=== PATIENT | male | born 1975 | race Hispanic/Latino ===

== ENCOUNTER 2017-05-16 17:58 | Emergency (ER) | payer SELFPAY ==
[~2017-05-16] VITALS: Ht 177.8 cm; Wt 83.9 kg
--- NOTE | 2017-05-16 21:07 | Diagnostic Imaging Report ---
Two view chest x-ray INDICATION: Cough for 2 weeks COMPARISON: None. FINDINGS: The cardiomediastinal silhouette is normal. There is no evidence of hilar lymphadenopathy. The pulmonary vascular markings are normal. There is no evidence of focal consolidation or pleural effusion. Evaluation of the osseous structures demonstrates no focal abnormality. IMPRESSION: No active cardiopulmonary disease. Signed by: Dr. Riley Corcoran MD on 05/16/2017 9:04 PM
[2017-05-16 23:00] LABS: STREPTOCOCCUS GRP A ANTIGEN NEGATIVE (NEGATIVE)
[2017-05-16 23:11] LABS: INFLUENZAE A&B ANTIGEN (RAPID) NEGATIVE (NEGATIVE)
== END 2017-05-17 01:13 | disposition home or self-care (01) ==
LOC: ER 17:58
DX: R05 Cough (principal); J02.9 Acute pharyngitis, unspecified; B34.9 Viral infection, unspecified
CPT/HCPCS: 71020; 83518; 87070; 87400; 99283

== ENCOUNTER → 2025-02-28 | Day surgery (SDC) | payer BC ==
[~2025-02-28] MED LIST: AMLODIPINE BESY10 MG PO; DIOVAN160 MG PO; HYOSCYAMINE SULFATE 0.5 MG/ML INJ ONE; LEVOTHYROXINE50 MCG PO; LIDOCAINE HCL 2% LOCAL INJ 5 ML SDV VIAL INJ ONE; MIDAZOLAM HCL 2 MG/2 ML VIAL ONE; PROPOFOL IV EMULSION 10 MG/ML 20 ML VIAL ONE; zinc PO
[2025-02-28] MEDS: LACTATED RINGER'S 1,000 ML ONE (12:20)
[2025-02-28 13:54] VITALS: TEMP 98
[2025-02-28 14:15] VITALS: BP 143/91; PULSE 74; RESP 18; O2SAT 99
== END | disposition home or self-care (01) ==
LOC: OR 07:14
PROVIDERS: ATTEND Internal Medicine Gastroenterology
DX: D12.3 Benign neoplasm of transverse colon (principal); D12.2 Benign neoplasm of ascending colon; D12.0 Benign neoplasm of cecum; K63.5 Polyp of colon; K64.8 Other hemorrhoids; I10 Essential (primary) hypertension; E03.9 Hypothyroidism, unspecified; K21.9 Gastro-esophageal reflux disease without esophagitis; Z79.1 Long term (current) use of non-steroidal anti-inflammatories (NSAID); Z68.32 Body mass index [BMI] 32.0-32.9, adult; Z79.890 Hormone replacement therapy; Z01.810 Encounter for preprocedural cardiovascular examination
CPT/HCPCS: 45378; 45384; 45385; 93005; J1980; J2003; J2250